=== PATIENT | female | born 1965 | race Caucasian/White ===

== ENCOUNTER 2018-10-11 08:01 | Emergency (ER) | payer OTHER ==
[~2018-10-11] VITALS: Ht 160 cm; Wt 73.5 kg
[2018-10-11] MEDS ORDERED: PEPCID20 MG PO (08:08)
[2018-10-11] MEDS ORDERED: NEXIUM40 M1 PO (08:08)
[2018-10-11] MEDS ORDERED: VENTOLIN HFA18 GM IH (08:09)
[2018-10-11] MEDS ORDERED: ADVAIR 100-501 EACH IH (08:09)
[2018-10-11] MEDS ORDERED: LEXAPRO5 MG PO (08:10)
[2018-10-11] MEDS ORDERED: PROBIOTIC1 EAC3 PO (08:10)
[2018-10-11] MEDS ORDERED: ALLEGRA ALLERG180 MG PO (08:11)
[2018-10-11] MEDS ORDERED: SINGULAIR10 MG PO (08:11)
[2018-10-11] MEDS ORDERED: ASA325 MG PO (08:12)
== END 2018-10-11 09:42 | disposition home or self-care (01) ==
LOC: ER 08:01
DX: L27.0 Generalized skin eruption due to drugs and medicaments taken internally (principal); T36.8X5A Adverse effect of other systemic antibiotics, initial encounter; Y92.89 Other specified places as the place of occurrence of the external cause

== ENCOUNTER 2019-04-02 13:22 | Emergency (ER) | payer OTHER ==
[~2019-04-02] VITALS: Ht 160 cm; Wt 74.8 kg
[~2019-04-02 13:22] MED LIST: ADVAIR 100-501 EACH IH; ALLEGRA ALLERG180 MG PO; ASA325 MG PO; LEXAPRO5 MG PO; NEXIUM40 M1 PO; PEPCID20 MG PO; PROBIOTIC1 EAC3 PO; SINGULAIR10 MG PO; VENTOLIN HFA18 GM IH
[2019-04-02] MEDS ORDERED: MEDROLPACK PO (16:05)
[2019-04-02] MEDS ORDERED: METAXALL800 MG PO (16:05)
== END 2019-04-02 16:31 | disposition home or self-care (01) ==
LOC: ER 13:22
DX: M54.41 Lumbago with sciatica, right side (principal)